=== PATIENT | female | born 1940 | race Caucasian/White ===

== ENCOUNTER 2017-02-01 22:31 | Inpatient (IN) | payer MEDICARE, OTHER ==
[2017-02-01] MEDS ORDERED: SINGULAIR10 M1 PO (22:47)
[2017-02-01] MEDS ORDERED: NEURONTIN300 M1 PO (22:47)
[2017-02-01] MEDS ORDERED: LIALDA1.2 GM/TAB PO (22:47)
[2017-02-01] MEDS ORDERED: NORCO 5-325 TA1 EACH PO (22:48)
[2017-02-01] MEDS ORDERED: DICYCLOMINE HCL20 M1 PO (22:49)
[2017-02-01] MEDS ORDERED: CULTURELLE1 EAC1 PO (22:50)
[2017-02-02 01:32] LABS: URINE BILIRUBIN NEGATIVE (NEG); URINE BLOOD SMALL (NEG); URINE GLUCOSE (UA) NEGATIVE (NEG); URINE KETONE NEGATIVE (NEG); URINE LEUKOCYTE ESTERASE NEGATIVE (NEG); URINE NITRITE NEGATIVE (NEG); URINE PROTEIN NEGATIVE (NEG)
[2017-02-02 01:35] LABS: URINE APPEARANCE CLEAR; URINE COLOR PALE YELLOW
[2017-02-02 01:40] LABS: URINE EPITHELIAL CELLS 0-2 /[HPF] (0-10); URINE RBC 0-1 /[HPF] (0-5); URINE WBC 0-1 /[HPF] (0-5)
[2017-02-02 05:37] LABS: BASO % 0.4 % (0-2); EOS % 1.7 % (0-7); EOSINOPHIL ABSOLUTE COUNT 0.1 tho/cmm (0.0-0.7); HCT-HEMATOCRIT 35.2 % (34.0-49.0); HGB-HEMOGLOBIN 11.9 gm/dl (12.0-15.5); IMMATURE GRANULOCYTES ABSOLUTE 0.02 tho/cmm (0-0.03); IMMATURE GRANULOCYTES PERCENT 0.3 % (0-0.3); LYMPH % 21.2 % (20-45); LYMPH ABSOLUTE COUNT 1.5 tho/cmm (0.8-4.5); MCH (MEAN CORPUSCULAR HGB) 29.5 pg (28.0-32.0); MCHC MEAN CORPUSCULAR HGB CONC 33.8 % (32.0-36.0); MCV (MEAN CELL VOLUME) 87.1 fl (82.0-96.0); MEAN PLATELET VOLUME 8.5 cmc (9.4-12.4); MONO % 6.8 % (0-12); MONOCYTE ABSOLUTE COUNT 0.5 tho/cmm (0.0-1.2); NEUTROPHIL ABSOLUTE COUNT 4.9 tho/cmm (1.6-8.0); NEUTROPHIL-AUTOMATED 4.9 tho/cmm (1.6-8.0); NEUTROPHILS % 69.6 % (40-80); PLATELET COUNT 325 tho/cmm (150-450); RED BLOOD COUNT 4.04 mil/cmm (4.00-5.20); RED CELL DISTRIBUTION WIDTH 14.4 % (12.4-16.4)
[2017-02-02 05:50] LABS: ANION GAP 12 mmol/L (0-20); BLOOD UREA NITROGEN 13 mg/dl (6-24); CALCIUM 8.8 mg/dl (8.5-10.5); CARBON DIOXIDE-VENOUS 26 mmol/L (22-32); CHLORIDE 103 mmol/l (96-110); CHOLESTEROL 221 mg/dl (120-200); CREATININE 0.77 mg/dl (0.50-1.10); GLUCOSE 113 mg/dL (70-110); HDL CHOLESTEROL 78 mg/dl (40-60); LDL CHOLESTEROL 126 mg/dl (0-99); POTASSIUM 3.9 mmol/L (3.7-5.1); SODIUM 137 mmol/L (135-145); TRIGLYCERIDES 86 mg/dl (<149); VLDL 17 mg/dl (0-30); eGFR VALUE FOR BLACK 87 mL/Min
[2017-02-03] MEDS ORDERED: PLAVIX75 M1 PO (16:02)
[2017-02-03] MEDS ORDERED: LIPITOR40 M1 PO (16:02)
== END 2017-02-03 16:43 | DRG 65 ==
LOC: 5EB 22:31
PROVIDERS: Registered Nurse; ADMIT Hospitalist
PROC: B24BZZ4 Ultrasonography of Heart with Aorta, Transesophageal (ICD-10-PCS; principal; 2017-02-03)
DX: I63.9 Cerebral infarction, unspecified (principal); G81.94 Hemiplegia, unspecified affecting left nondominant side; G93.89 Other specified disorders of brain; K51.90 Ulcerative colitis, unspecified, without complications; Z85.3 Personal history of malignant neoplasm of breast; E78.5 Hyperlipidemia, unspecified; R29.810 Facial weakness; I65.29 Occlusion and stenosis of unspecified carotid artery; Z88.1 Allergy status to other antibiotic agents; Z88.0 Allergy status to penicillin; Z79.82 Long term (current) use of aspirin; Z90.10 Acquired absence of unspecified breast and nipple
CPT/HCPCS: A9577; G8978-GO-CJ; G8978-GP-CJ; G8979-GO-CI; G8979-GP-CI; G8980-GO-CJ; G9159-GN-CI; G9160-GN-CI; G9161-GN-CI; J1650; J2250; J3010; J7030